=== PATIENT | female | born 1960 | race American Indian/Alaskan Native ===

== ENCOUNTER 2016-02-20 06:12 | Emergency (ER) | payer SELFPAY ==
[2016-02-20 06:55] LABS: Basophils % (Auto) 0.4 % (0.0-1.8); Eosinophils % (Auto) 1.4 % (0.0-4.3); Hematocrit 39.1 % (30.3-42.9); Hemoglobin 13.2 gm/dl (10.1-14.3); Mean Corpuscular HGB Conc 34 % (30-34); Mean Corpuscular Hemoglobin 29 pg (28-32); Mean Corpuscular Volume 84 fl (79-97); Platelet Count 183 K/mm3 (140-440); Red Blood Count 4.64 M/mm3 (3.65-5.03); White Blood Count 4.1 K/mm3 (4.5-11.0)
[2016-02-20 07:17] LABS: BUN/Creatinine Ratio 11.25; Blood Urea Nitrogen 9 mg/dL (7-17); Calcium 8.9 mg/dL (8.4-10.2); Carbon Dioxide 24 mmol/L (22-30); Chloride 104.1 mmol/L (98-107); Glucose 107 mg/dL (65-100); Potassium 4.1 mmol/L (3.6-5.0); Sodium 142 mmol/L (137-145)
[2016-02-20 07:36] LABS: Anion Gap 18 mmol/L
--- NOTE | 2016-02-20 09:23 | Emergency Department Report ---
Chief Complaint: Chest Pain Stated Complaint: CHEST PAIN Time Seen by Provider: 02/20/16 09:22 - HPI History of Present Illness: She reports that she's having chest pain 3 days. Patient with history of hypertension. Patient blood pressure today is 191/124 and she says she took her clonidine at 9:40 AM. She takes clonidine 0.2 mg and lisinopril but she says she's been out of her lisinopril for a while. She reports chest pain comes and goes .she is not having any at present. Denies any shortness of breath. Reports that she started having a headache this morning because her blood pressure was elevated. She says she took 0.2 of clonidine at 4 AM this morning and then she just took one at 0940. I instructed patient blood pressure in 1 hour. - ROS Review of Systems: All systems are negative unless stated in HPI above - Exam Vital Signs: Vital Signs 02/20/16 06:24 Temperature 97.3 F L Pulse Rate 84 Respiratory 20 Rate Blood Pressure 191/124 O2 Sat by Pulse 100 Oximetry Physical Exam: General: This is a 56-year-old female well-nourished well-developed in no acute distress. CV: S1, S2. Regular rate and rhythm. Blood pressure is 191/124. Lungs: Clear to auscultate bilaterally. No rhonchi wheezes or rales Extremity: No clubbing, cyanosis or edema. +2 pedal pulses. No erythema noted to right great toe. MSE screening note: Focused history and physical exam performed. Due to findings the following was ordered:see [facility] ED Medical Decision Making - Lab Data Result diagrams: 02/20/16 06:41 02/20/16 06:41 - Medical Decision Making Medical decision making: Patient seen by provider in triage area. Appropriate protocol activated and patient to main ED to be seen by physician. ED Disposition for MSE Condition: Stable
[2016-02-20 10:09] LABS: Creatine Kinase MB 1.7 ng/mL (0.0-4.0)
--- NOTE | 2016-02-20 12:55 | Emergency Department Report ---
HPI - General Chief Complaint: Chest Pain Time Seen by Provider: 02/20/16 09:22 - HPI HPI: Chief complaint: Chest pain, reactive cough, shortness of breath at night and wheezing HPI: Patient is a 56-year-old female with a history of hypertension who ran out of her lisinopril and has been taking her clonidine only. Patient states she's been coughing up yellow sputum and had shortness of breath at night for the last 3 days. Patient complains of nausea but no vomiting. Patient complains of right leg swelling worse over the last month as well as radicular right leg pain and back to the buttocks down into the foot for the last year. Patient states that she has had a Doppler of that leg in the past and did not show a blood clot. Patient denies any previous imaging to her lower back looking for nerve compromise. Patient describes chest pain as sharp and worse with breathing. Patient states when she lays down at night she seems to be more short of breath and in the daytime. Patient states she had a headache this morning so she took one of her clonidine and when the headache did not get better she took a second one along with an aspirin and some slight improvement of her headache. Mode of arrival: [private car] Source: [Patient] Began: 3 days ago and see HPI Duration: See HPI Context: See HPI Quality: See above Severity: Mild to moderate pain to the chest, pain to her leg keeping her up at night and headache is mild to moderate Improved with: See above Worsened with: See above Associated signs and symptoms: See above ED Past Medical Hx - Past Medical History Hx Hypertension: Yes - Surgical History Additional Surgical History: TUBAL LIGATION - Social History Smoking Status: Current Every Day Smoker Substance Use Type: Alcohol - Medications Home Medications: Home Medications Medication Instructions Recorded Confirmed Last Taken Type ALBUTEROL Inhaler [ProAir HFA 2 puff IH QID PRN #1 inhalation 02/20/16 Unknown Rx Inhaler] Azithromycin [Zithromax TAB] 500 mg PO QDAY #3 tablet 02/20/16 Unknown Rx Cyclobenzaprine HCl [Flexeril 5 MG 5 mg PO TID PRN #10 tablet 02/20/16 Unknown Rx TAB] HYDROcodone/APAP 5-325 [[place] 1 each PO Q6HR PRN #14 tablet 02/20/16 Unknown Rx 5/325] Lisinopril [Zestril TAB] 20 mg PO QDAY #30 tablet 02/20/16 Unknown Rx Naproxen [Naprosyn TAB] 500 mg PO BID #20 tablet 02/20/16 Unknown Rx Pravastatin Sodium [Pravastatin] 40 mg PO QHS #30 tablet 02/20/16 Unknown Rx cloNIDine [Catapres] 0.2 mg PO TID #90 tablet 02/20/16 Unknown Rx ED Review of Systems ROS: Stated complaint: CHEST PAIN Other details as noted in HPI ROS Constitutional: No fever ENT: No uri symptoms Cardiovascular: chest pain Respiratory: See HPI GI: No vomiting or diarrhea : No dysuria frequency or urgency, Skin: No rash Neuro: No focal weakness or numbness Psych: No depression Sonu/lymph: Right lower extremity edema Physical Exam - Physical Exam Vital Signs: Vital Signs 02/20/16 02/20/16 02/20/16 06:24 12:29 12:43 Temperature 97.3 F L 98.2 F Pulse Rate 84 74 Respiratory 20 16 Rate Blood Pressure 191/124 151/104 O2 Sat by Pulse 100 100 Oximetry Physical Exam: GENERAL: The patient is well-developed well-nourished . HEENT: Normocephalic. Atraumatic. Extraocular motions are intact. Patient has moist mucous membranes. NECK: Supple. No meningitic signs are noted. There is no adenopathy noted. CHEST/LUNGS: Clear to auscultation. There is no respiratory distress noted. Pulse ox 98% on room air HEART/CARDIOVASCULAR: Regular. There is no tachycardia. There is no gallop rub or murmur. ABDOMEN: Abdomen is soft, nontender. Patient has normal bowel sounds. There is no abdominal distention. SKIN: There is no rash. There is 1+ right pedal edema. There is no diaphoresis. NEURO: The patient is awake, alert, and oriented. The patient is cooperative. The patient has no focal neurologic deficits. The patient has normal speech. MUSCULOSKELETAL: There is no tenderness or deformity. Patient has pain to her lower back with straight leg raise. There is no evidence of acute injury. ED Course Vital Signs 02/20/16 02/20/16 02/20/16 06:24 12:29 12:43 Temperature 97.3 F L 98.2 F Pulse Rate 84 74 Respiratory 20 16 Rate Blood Pressure 191/124 151/104 O2 Sat by Pulse 100 100 Oximetry ED Medical Decision Making - Lab Data Result diagrams: 02/20/16 06:41 02/20/16 06:41 Laboratory Tests 02/20/16 02/20/16 02/20/16 06:41 09:25 09:25 Total Creatine Kinase 109 CK-MB (CK-2) 1.7 CK-MB (CK-2) Rel Index 1.5 Troponin T < 0.010 < 0.010 - EKG Data -: EKG Interpreted by Me EKG shows normal: sinus rhythm (with one PVC) Rate: normal (83) - EKG Data When compared to previous EKG there are: previous EKG unavailable Interpretation: [facility] - Radiology Data Radiology results: report reviewed (Doppler shows no evidence of DVT. Chest x- ray shows bilateral atelectasis and possibly left infiltrate. CTA shows no pulmonary embolus but bilateral atelectasis. CT head shows no acute process.) Critical care attestation.: If time is entered above; I have spent that time in minutes in the direct care of this critically ill patient, excluding procedure time. ED Disposition Clinical Impression: Essential hypertension Bronchitis, acute Qualifiers: Bronchitis organism: unspecified organism Qualified Code(s): J20.9 - Acute bronchitis, unspecified Sciatica Qualifiers: Laterality: right Qualified Code(s): M54.31 - Sciatica, right side Disposition: DISCHARGED TO HOME OR SELFCARE Is pt being admited?: No Does the pt Need Aspirin: No Condition: Stable Instructions: Hypertension (ED), Acute Bronchitis (ED), Lumbar Radiculopathy ( ED) Prescriptions: ALBUTEROL Inhaler [ProAir HFA Inhaler] 2 puff IH QID PRN #1 inhalation PRN Reason: Shortness Of Breath Azithromycin [Zithromax TAB] 500 mg PO QDAY #3 tablet Cyclobenzaprine HCl [Flexeril 5 MG TAB] 5 mg PO TID PRN #10 tablet PRN Reason: Muscle Spasm HYDROcodone/APAP 5-325 [[place] 5/325] 1 each PO Q6HR PRN #14 tablet PRN Reason: Pain Lisinopril [Zestril TAB] 20 mg PO QDAY #30 tablet Naproxen [Naprosyn TAB] 500 mg PO BID #20 tablet Pravastatin Sodium [Pravastatin] 40 mg PO QHS #30 tablet cloNIDine [Catapres] 0.2 mg PO TID #90 tablet Referrals: PRIMARY CAREMD [Primary Care Provider] - 3-5 Days ORLY VILLA MD [Staff Physician] - 3-5 Days [facility] [Provider Group] - 3-5 Days Time of Disposition: 14:50
--- NOTE | 2016-02-20 13:51 | XRay Report ---
PA and lateral chest: Focal linear atelectasis or scar is identified at the right lung base posteriorly. There is a minimal area of patchy density just above the left costophrenic angle is seen on the frontal projection. The pulmonary and cardiac findings are not otherwise remarkable. I have no prior study for comparison. Impression: 1. Right basilar linear atelectasis/scar. 2. Focal minimal atelectasis or infiltrate at the left base.
[2016-02-20] MEDS ORDERED: NACL ONE (14:00)
--- NOTE | 2016-02-20 14:28 | Admit Criteria Form ---
Admission Criteria Documentation: PULMONARY DISEASE GRG Clinical Indications for Admission to Inpatient Care ( Place 'X' for any and all applicable criteria): Hospital admission is needed for appropriate care of the patient because of ANY ONE of the following(1): [ ]I. Impending or actual respiratory arrest ( Use Respiratory Failure Criteria for severe respiratory disease and long-term mechanical ventilation patients) (4) [ ]II. Severe airflow or ventilation abnormalities (not responsive to emergency and observation care treatment as appropriate) as indicated by ANY ONE of the following(5)(6)(7)(8) : [ ]a) PCO2 > 42 mm Hg (5.6 kPa) and pH < 7.35 (new) [ ]b) Documented PCO2 increase > 5 mm Hg (0.7 kPa) from disease baseline [ ]c) Airflow measurements[A] < 60% of previous best or predicted ( e.g., PEF <300 L/minute) despite intensive emergent treatment[B] [ ]d) Required respiratory treatments that are performable only in acute inpatient setting [ ]III. Severe respiratory findings (not responsive to emergency and observation care treatment as appropriate) including ANY ONE of the following(5)(8)(9): [ ]a) Respiratory distress as indicated by ALL of the following(5)(10): [ ]i) Patient with ANY ONE of the following: [ ]1) Dyspnea (difficulty breathing) [ ]2) Abnormal breathing pattern (eg, chest retractions) [ ]3) Tachypnea [ ]4) Other evidence of difficulty breathing [ ]ii) Evidence of respiratory compromise indicated by ANY ONE of the following: [ ]1) Hypoxemia [ ]2) Altered mental status [ ]3) Other evidence of respiratory compromise (eg, pulmonary edema on chest x-ray) [ ]b) Stridor [ ]c) Gross hemoptysis(11) [ ]d) Acute cyanosis [ ]IV. High-risk pulmonary infection as indicated by ANY ONE of the following( 19)(20)(21)(22): [ ]a) Temperature less than 95 degrees F(35 degrees C) or greater than 103.1 degrees F(39.5 degrees C) [ ]b) Hemodynamic instability that remains after emergency or observation level care (as appropriate) [ ]c) Immunocompromised patient (eg, AIDS, post transplant, neutropenic) [ ]d) History of severe COPD [ ]e) History of severely symptomatic congestive heart failure [ ]f) Other high-risk comorbidity (eg, poorly controlled diabetes, cirrhosis, chronic renal insufficiency) [ ]g) Hypoxemia (new) [ ]h) Outpatient, observation, or recovery facility therapy has failed, is not appropriate, or is not feasible [X ]V. Severe atelectasis or lung collapse(15)(16) [ ]. Tuberculosis requiring inpatient treatment as indicated by ANY ONE of the following(17)(18): [ ]a) New positive acid-fast bacilli sputum smear [ ]b) Positive acid-fast bacilli smear (under current treatment), with ANY ONE of the following: [ ]i) Unexposed household contacts [ ]ii) Infants or immunosuppressed household contacts [ ]iii) Patient unable or unwilling to avoid exposing others [ ]iv) Severe immunocompromised patient (eg, AIDS, post transplant, neutropenic) [ ]VII. Empyema or lung abscess(13)(14) [ ]VIII. Severe pulmonary arterial hypertension or pulmonary vascular disease requiring inpatient care indicated by ANY ONE of the following(24)(25): [ ]a) Initiation or change of vasodilators (IV, subcutaneous, or inhaled) or other vasoactive medications needed [ ]b) IV anticoagulation needed (eg, immediate anticoagulation necessary, alternatives not appropriate) [ ]c) Arterial or pulmonary artery catheter monitoring needed due to infusion or other treatment [ ]IX. Chronic lung disease with severe deterioration (not responsive to emergency and observation care treatment as appropriate) as indicated by ANY ONE of the following (6)(12): [ ]a) SaO2 5% below baseline in patient with chronic hypoxemia [ ]b) New requirement for supplemental oxygen to keep SaO2 at baseline or acceptable level [ ]c) Required supplemental oxygen performable only in acute inpatient setting [ ]d) Severe airflow or ventilation abnormalities [ ]e) Rapid rate of exacerbation onset [ ]f) Previously mobile patient unable to walk between rooms [ ]g) Inability to eat or sleep due to dyspnea [ ]h) Altered mental status [ ]X. Cystic fibrosis with severe deterioration as indicated by ANY ONE of the following(26)(27): [ ]a) Severe exacerbation that does not respond to intensified home therapy [ ]b) Pneumonia [ ]c) Hemoptysis [ ]d) Atelectasis [ ]e) Pneumothorax [ ]f) Respiratory failure [ ]g) Severe exacerbation with patient unable to perform prescribed treatments at home [ ]XI. Severe right heart failure as indicated by ANY ONE of the following(24) (25): [ ]a) Increasing organ failure (eg, liver congestion with significant and worsening or new elevation of transaminases) [ ]b) Anasarca [ ]c) Angina that requires inpatient care (eg, not treatable in emergency or observation level of care) [ ]d) Respiratory distress [ ]e) Syncope [ ]f) SBP < 90 mm Hg (new) [ ]XII. Injury requiring inpatient care (medical) as indicated by ANY ONE of the following(28): [ ]a) Significant inhalation injury (eg, smoke inhalation, other toxic inhalation) (29)(30)(31) [ ]b) Airway obstruction that remains or is unstable after emergency or observation level care(32) [ ]c) Severe pain requiring acute inpatient management [ ]d) Lung contusion [ ]e) Bronchial tree injury [ ]f) Air or fat emboli(33) [ ]g) Other injury not treatable in emergency or observation level care (eg, hemothorax) (34) [ ]XIII. Pulmonary hemorrhage or significant hemoptysis(11)(35)(36) [ ]XIV. Inpatient palliative care needed[C](37)(38)(39)(40) [ ]XV. Complications of lung transplant (eg, rejection, failure, respiratory infection) (23) [ ]XVI. Pulmonary Disease and ANY ONE of the following: [ ]a) General Admission Criteria [ ]b) Pediatric General Admission Criteria The original [facility] content created by [facility] has been revised. The portions of the content which have been revised are identified through the use of italic text or in bold, and [facility] has neither reviewed nor approved the modified material. All other unmodified content is copyright [facility]. Please see references footnoted in the original [facility] edition 2016
--- NOTE | 2016-02-20 14:50 | Cat Scan Report ---
CT HEAD WITHOUT CONTRAST INDICATION: Headache, hypertension. COMPARISON: None similar. FINDINGS: Noncontrast head CT demonstrates normal ventricles and sulci without acute or recent infarct, hemorrhage, mass effect or midline shift. Mild periventricular hypodensities. No abnormal extra-axial fluid collections. Preserved basilar cisterns. Diffuse hyperdensity along franky/inferior brainstem anteriorly measuring approximately 2.4 x 1 cm as on axial image 12, series 102 felt artifactual. Symmetric eye globes. Clear paranasal sinuses and temporal bone air cells with mastoids not well pneumatized. Intact calvarium. Normal overlying scalp soft tissues. Sella may be partially empty. Atherosclerotic internal carotid artery calcifications. Few missing teeth and dental wires incidentally noted. Cervical spondylosis. CONCLUSION: No definite acute intracranial CT abnormality with few incidental findings, as described. Please correlate. Thank you for the opportunity to participate in this patient's care.
[2016-02-20 15:20] VITALS: BP 169/97
--- NOTE | 2016-02-20 15:24 | Cat Scan Report ---
CTA CHEST: INDICATION: Chest pain. COMPARISON: None similar. FINDINGS: Chest CTA performed following intravenous administration of 100 cc of Omnipaque 350. Rotational MIP's also obtained. Borderline cardiomegaly. No effusions. Slight aortic arch calcifications. No aortic aneurysm, dissection or suspicious pulmonary arterial filling defects. No size significant adenopathy. Patent airway. Unremarkable thyroid. Right hemidiaphragm mildly elevated with right lower lobe atelectasis. Nonspecific distal esophageal wall thickening, not excluded for gastroesophageal reflux and/or hiatal hernia, amongst others. No significant abnormality in the imaged upper abdomen with right hepatic lobe estimated at 17.3 cm in midclavicular length. Multilevel spinal degenerative spurring. CONCLUSION: Right lower lobe atelectasis/slight volume loss without CT evidence of pulmonary embolism with few other incidental findings, as above. Please correlate. Thank you for the opportunity to participate in this patient's care.
== END 2016-02-20 15:32 | disposition home or self-care (01) ==
LOC: ED 06:12
DX: J20.9 Acute bronchitis, unspecified (principal); I10 Essential (primary) hypertension; M54.31 Sciatica, right side; F17.200 Nicotine dependence, unspecified, uncomplicated
CPT/HCPCS: 36415; 70450; 71020; 71275; 80048; 82550; 82553; 84484; 85025; 85379; 93005; 93010; 93971; 99285; Q9967